=== PATIENT | female | born 1950 | race Caucasian/White ===

== ENCOUNTER 2025-07-25 18:57 | Emergency (ER) | payer OTHER ==
[~2025-07-25] VITALS: Ht 162.6 cm; Wt 64.0 kg
[2025-07-25 19:03] VITALS: O2SAT 99
[2025-07-25] MEDS: HYDROCODONE/ACETAMINOPHEN 5/325MG TABLET PO ONE (20:16)
[2025-07-25 22:12] VITALS: BP 118/70; PULSE 88; RESP 20; TEMP 36.7; O2SAT 98
[2025-07-25] MEDS ORDERED: HYDR-4001 MT (22:14)
== END 2025-07-25 22:10 | disposition home or self-care (01) ==
LOC: ER 18:57
DX: S82.142A Displaced bicondylar fracture of left tibia, initial encounter for closed fracture (principal); E11.9 Type 2 diabetes mellitus without complications; W19.XXXA Unspecified fall, initial encounter; Y92.811 Bus as the place of occurrence of the external cause; Y93.89 Activity, other specified; Y99.8 Other external cause status
CPT/HCPCS: 29505; 73564; 73700; 99284